=== PATIENT | male | born 1975 | race Caucasian/White ===

== ENCOUNTER 2016-09-21 08:00 | Emergency (ER) | payer OTHER ==
[2016-09-21] MEDS ORDERED: ONDANSETRON 4 MG/2 ML VIAL IVP ONE (08:15)
[2016-09-21] MEDS ORDERED: NS 1,000 ML IV ONE ×2 (08:15)
[2016-09-21] MEDS ORDERED: HYDROmorphONE/DILAUDID 1 MG/ML SYR IVP ONE (08:15)
[2016-09-21] MEDS ORDERED: FAMOTIDINE 20 MG/NACL 50 ML IV ONE (08:15)
--- NOTE | 2016-09-21 08:34 | EDPHY ---
H & P Time Seen by Provider: 09/21/16 08:16 HPI/ROS: HPI Abdominal pain, vomiting. 41-year-old male by private vehicle with his girlfriend. This patient reports that he was at the gym yesterday. At about 1:00 p.m.. He drank Gatorade. He then developed sudden-onset periumbilical cramping pain. He reports that he left the gym and then went out to the parking lot and vomited. Since this time he has had multiple episodes of nonbilious, nonbloody vomiting. No diarrhea. He reports having several normal bowel movements since yesterday. No bloody or melenic stool. He also reports having some pain in his lower back which she describes as pain radiating from his stomach. He denies any urinary complaints. Last meal was at 12 noon yesterday. He denies any prior history of abdominal surgeries. ROS: Constitutional: No fever, no chills. No weakness. Eyes: No discharge. No changes in vision. ENT: No sore throat. No nasal congestion or rhinorrhea. Respiratory: No cough. No shortness of breath. Cardiac: No chest pain, no palpitations. Gastrointestinal: As above. Genitourinary: No hematuria. No dysuria or increased frequency with urination. Musculoskeletal: As above. No neck pain. No myalgias or arthralgias. Skin: No rashes. Neurological: No headache. No focal weakness or altered sensation. Past medical history: No past medical history. Social history: Here with his girlfriend. Physical Exam: General Appearance: Alert, he appears uncomfortable. This patient is responding to questions appropriately and in full sentences. This patient appears well-hydrated and well-nourished. Eyes: Pupils equal and round no pallor or injection. No lid edema, erythema or injection. Respiratory: There are no retractions, lungs are clear to auscultation with good air movement bilaterally. Cardiovascular: Regular rate and rhythm. No murmur. Gastrointestinal: Abdomen is soft with mild to moderate periumbilical and lower abdominal tenderness on palpation, right lower quadrant greater than left lower quadrant, no masses, bowel sounds normal. No focal tenderness at McBurney 's point. No Quintanilla sign. Neurological: Motor sensory function is grossly intact. Cranial nerves are normal. Gait is normal. Skin: Warm and dry, no rashes. Musculoskeletal: Neck is supple and nontender. Extremities are symmetrical. All joints range without pain or impingement. Psychiatric: No agitation. No depression. Database: EKG: Imaging: CT abdomen and pelvis with IV contrast: The appendix is well visualized and is unremarkable. No other significant pathology. Results were discussed with staff radiologist. Procedures: Emergency department course: IV placed. He was placed on a monitor. He was started on IV normal saline with 1 L to be given over the next hour. He will be given 4 mg of IV Zofran, 0.5 mg of IV hydromorphone and 20 mg of IV Pepcid. He will be sent for CT imaging to evaluate for possible appendicitis. 10:45 a.m., patient re-evaluated. Resting comfortably at this time. Results of his blood work, urinalysis and CT scan were discussed with him. Repeat abdominal exam he is soft and without significant tenderness on palpation. I feel he is safe for discharge with oral Zofran. He feels comfortable with this plan. Follow-up and return to emergency department precautions have been discussed with him. All of his questions were answered. He was discharged from the emergency department in good condition. His girlfriend is driving. Differential Diagnosis: The differential diagnosis on this patient includes but is not limited to appendicitis, food-borne illness, viral gastroenteritis, nephrolithiasis. This represents a partial list of diagnoses considered. These considerations are based on history, physical exam, past history, reassessment and diagnostic testing. Smoking Status: Never smoked Constitutional: Initial Vital Signs Temperature (C) 36.6 C 09/21/16 08:03 Heart Rate 100 09/21/16 08:03 Respiratory Rate 20 09/21/16 08:03 Blood Pressure 116/67 09/21/16 08:03 O2 Sat (%) 95 09/21/16 08:03 O2 Delivery Mode Room Air Allergies/Adverse Reactions: No Known Allergies Allergy (Unverified 09/21/16 08:03) Home Medications: Medication Instructions Recorded MIRTAZAPINE 09/21/16 Ondansetron Odt [Zofran Odt 4 mg 4 mg PO Q4PRN PRN #10 tab 09/21/16 (*)] Medical Decision Making - Data Points Laboratory Results: Laboratory Results 09/21/16 08:20 09/21/16 08:20 Medications Given: Discontinued Medications Hydromorphone HCl (Dilaudid) 0.5 mg IVP EDNOW ONE Stop: 09/21/16 08:16 Last Admin: 09/21/16 08:55 Dose: 0.5 mg Sodium Chloride (Ns) 1,000 mls @ 0 mls/hr IV ONCE ONE PRN Reason: Wide Open Stop: 09/21/16 08:16 Last Admin: 09/21/16 08:44 Dose: 1,000 mls Sodium Chloride (Ns) 1,000 mls @ 0 mls/hr IV ONCE ONE PRN Reason: Wide Open Stop: 09/21/16 08:16 Last Admin: 09/21/16 08:55 Dose: 1,000 mls Famotidine/Sodium Chloride (Pepcid 20 Mg (Premix)) 50 mls @ 200 mls/hr IV EDNOW ONE Stop: 09/21/16 08:29 Last Admin: 09/21/16 08:43 Dose: 50 mls Ondansetron HCl (Zofran) 4 mg IVP EDNOW ONE Stop: 09/21/16 08:16 Last Admin: 09/21/16 08:44 Dose: 4 mg Departure - Departure Disposition: Home, Routine, Self-Care Clinical Impression: Abdominal pain, Vomiting Condition: Good Instructions: Acute Nausea and Vomiting (ED), Acute Abdominal Pain (ED) Additional Instructions: Read and follow provided instructions. Follow-up with your primary care physician in 1-2 days for re-evaluation. Take medication as prescribed for nausea. Return to the emergency department for worsening pain, fever, vomiting and inability to keep fluids down despite medications or other serious concerns. Referrals: NONE *PRIMARY CARE P,. [Unknown] - As per Instructions Prescriptions: Ondansetron Odt [Zofran Odt 4 mg (*)] 4 mg PO Q4PRN PRN #10 tab PRN Reason: For Nausea & Vomiting
[2016-09-21 08:48] LABS: ABSOLUTE IMMATURE GRANULOCYTES 0.07 10^3/uL (0.00-0.10); ADD DIFF? NO; ADD MORPH? NO; ADD SCAN? NO; ATYPICAL LYMPHOCYTE FLAG 10 (0-99); FRAGMENT RBC FLAG 0 (0-99); HEMATOCRIT 45.1 % (40.0-51.0); LEFT SHIFT FLG 10 (0-99); LIPEMIA HEMOLYSIS FLAG 90 (0-99); MEAN CELL HEMOGLOBIN 29.7 pg (27.9-34.1); MEAN CELL HEMOGLOBIN CONCENTR. 35.5 g/dL (32.4-36.7); MEAN CELL VOLUME 83.7 fL (81.5-99.8); MEAN PLATELET VOLUME 10.3 fL (8.7-11.7); PLATELET CLUMPS FLAG 0 (0-99); PLATELET COUNT 176 10^3/uL (150-400); RED BLOOD CELL COUNT 5.39 10^6/uL (4.40-6.38); RED CELL DISTRIBUTION WIDTH 12.8 % (11.5-15.2)
[2016-09-21] MEDS ORDERED: IOPAMIDOL (ISOVUE-300) 100 ML BTL IV ONE (08:48)
[2016-09-21 09:19] LABS: ALANINE AMINOTRANSFERASE 35 IU/L (21-72); ALBUMIN 4.3 g/dL (3.5-5.0); ALKALINE PHOSPHATASE 58 IU/L (38-126); ANION GAP 12 mEq/L (8-16); ASPARTATE AMINOTRANSFERASE 25 IU/L (17-59); BILIRUBIN,TOTAL 1.4 mg/dL (0.1-1.4); BILIRUBIN-CONJUGATED 0.4 mg/dL (0.0-0.5); CALCIUM 9.2 mg/dL (8.5-10.4); CARBON DIOXIDE 24 mEq/l (22-31); CHLORIDE 102 mEq/L (97-110); GLOMERULAR FILTRATION RATE > 60; GLUCOSE 99 mg/dL (70-100); POTASSIUM 4.1 mEq/L (3.5-5.2); SODIUM 138 mEq/L (134-144); TOTAL PROTEIN 7.3 g/dL (6.3-8.2)
[2016-09-21 10:01] LABS: COLOR YELLOW; LEUKOCYTE ESTERASE,URINE NEGATIVE (NEGATIVE); NITRITE,URINE NEGATIVE (NEGATIVE)
[2016-09-21 10:06] LABS: MUCUS TRACE /lpf (NONE-1+)
[2016-09-21 10:19] VITALS: RESP 16; O2SAT 98
[2016-09-21 11:26] VITALS: BP 128/75; PULSE 76; TEMP 97.7
== END 2016-09-21 11:26 | disposition home or self-care (01) ==
DX: R11.10 Vomiting, unspecified (principal); R10.33 Periumbilical pain; R10.31 Right lower quadrant pain; R10.32 Left lower quadrant pain
CPT/HCPCS: 96365; J1170; J2405; Q9967